=== PATIENT | female | born 2000 | race Caucasian/White ===

== ENCOUNTER 2020-03-05 19:41 | Emergency (ER) | payer BC, SELFPAY ==
[2020-03-05 19:44] VITALS: BP 139/97; PULSE 102; RESP 16; TEMP 37.1; O2SAT 98
[2020-03-05] MEDS: OXYMETAZOLINE HCL 0.05% NAS 15 ML BTL (*BKC) 2 SPRAY NASAL (20:27)
--- NOTE | 2020-03-05 20:29 | ED.EPISTAXIS ---
HPI - Epistaxis General Chief complaint: Epistaxis <JOJO Rivera Last Filed: 03/05/20 20:41> Stated complaint: nose bleed x 6/24 Hours <JOJO Rivera Last Filed: 03/05/20 20:41> Time Seen by Provider: 03/05/20 19:48 <JOJO Rivera Last Filed: 03/05/20 20:41> Source: patient <JOJO Rivera Last Filed: 03/05/20 20:41> Mode of arrival: ambulatory <JOJO Rivera Last Filed: 03/05/20 20:41> Limitations: no limitations <JOJO Rivera Last Filed: 03/05/20 20:41> History of Present Illness HPI Narrative: Patient presents with chief complaint of left-sided nasal bleeding that occurred while she was playing kickball today. Patient states that she has had 4-6 short nosebleeds. Patient states that she put a tampon in her nose to stop the bleeding. Patient reports that her nose is very sensitive to changes in temperature and when that occurs she typically has nosebleeds. Patient denies issues with allergies such as sneezing, runny nose, scratchy nose, cough. Patient denies any sinus tenderness or increased sinus drainage. Patient denies any other symptoms or concerns or allergies. <JOJO Rivera Last Filed: 03/05/20 20:41> Related Data Home medications: Home Medications Medication Instructions Recorded Confirmed No Home Medications 03/05/20 03/05/20 <JOJO Rivera Last Filed: 03/05/20 20:41> Allergies/adverse reactions: Allergies Allergy/AdvReac Type Severity Reaction Status Date / Time No Known Allergies Allergy Verified 03/05/20 19:46 <JOJO Rivera Last Filed: 03/05/20 20:41> Review of Systems Review of Systems: Narrative: CONSTITUTIONAL: Denies fever, chills, or sweats. EYES: Denies visual changes, redness, or discharge. ENT: Reports epistaxis left nare denies rhinorrhea, congestion, sore throat, or otalgia. CARDIOVASCULAR: Denies chest pain, palpitations, or edema. RESPIRATORY: Denies cough or dyspnea. GASTROINTESTINAL: Denies abdominal pain, nausea, vomiting, or diarrhea. GENITOURINARY: Denies dysuria or hematuria. SKIN: Denies rash or itching. MUSCULOSKELETAL: Denies back pain, joint pain, or myalgia. NEUROLOGIC: Denies headache, numbness, dizziness, or weakness. PSYCHIATRIC: Denies anxiety or depression. <Radha An PA-C - Last Filed: 03/05/20 20:41> [facility] Past Medical History Medical History: Medical History (Updated 03/05/20 @ 20:40 by Radha An PA-C) Epistaxis <Radha An PA-C - Last Filed: 03/05/20 20:41> Social History Social History: Social History (Updated 03/05/20 @ 20:32 by Radha An PA-C) Smoking status: Never smoker Alcohol intake: unknown Substance use: never Gender identity (if verbalized by the patient): Female <Radha An PA-C - Last Filed: 03/05/20 20:41> Exam Narrative: Exam Narrative: GENERAL: Well-appearing, well-nourished, and in no acute distress. HEAD: Normocephalic, atraumatic. EYES: PERRLA and EOMI. ENT: Dried blood noted to left nare. No acute bleeding noted. Nasal passages are dry and tissue was friable. Oral mucous membranes moist. Oropharynx without tonsillar hypertrophy exudate or other lesions. Bilateral TMs pearly rice nonbulging CHEST: Clear to auscultation. No respiratory distress. No wheezes rales or rhonchi HEART: Regular rate and rhythm. EXTREMITIES: Normal range of motion. No edema. SKIN: Warm, dry, no rash. NEURO: No focal deficits. Alert and oriented x3. <Radha An PA-C - Last Filed: 03/05/20 20:41> Course Vital Signs Vital signs: Vital Signs Temperature 98.7 F 03/05/20 19:44 Pulse Rate 102 H 03/05/20 19:44 Respiratory Rate 16 03/05/20 19:44 Blood Pressure 139/97 H 03/05/20 19:44 Pulse Oximetry 98 03/05/20 19:44 Temperature 98.7 F 03/05/20 19:44 Pulse Rate 80 03/05/20 20:46 Respiratory Rate 18 03/05/20 20:46 Blood Pressure
[2020-03-05 20:46] VITALS: BP 130/68; PULSE 80; RESP 18; O2SAT 99
== END 2020-03-05 20:47 | disposition home or self-care (01) ==
PROVIDERS: Emergency Provider General Practice
DX: R04.0 Epistaxis (principal)
CPT/HCPCS: 99283; A9270